=== PATIENT | female | born 1975 | race Caucasian/White ===

== ENCOUNTER 2018-12-25 22:22 | Emergency (ER) | payer MEDICAID, OTHER ==
[~2018-12-25] VITALS: Ht 170.2 cm; Wt 74.7 kg
[~2018-12-25 22:22] MED LIST: PT TAKES NO MEDS
[2018-12-25 22:27] VITALS: BP 168/91; PULSE 101; RESP 20; Ht 170.2 cm; Wt 74.7 kg
[2018-12-25] MEDS ORDERED: HYDROCODONE/APAP (5/325) TAB PO ONE (23:30)
--- NOTE | 2018-12-26 00:37 | ERD ---
ER Documentation Chief Complaint Chief Complaint L elbow pain rad to forearm x30min; no fall/ trauma. crying, emotional. HPI Patient is a 43-year-old female presents the ER for concerns of left elbow pain radiating to her forearm times 30 minutes. Patient denies any falls or trauma. She states pain is severe, rates it 10 out of 10. Patient denies any left shoulder pain, chest pain, shortness of breath, nausea, vomiting or LOC. Patient has not taken medications for pain. Patient is currently in [employer] however she does not recall any specific way she may have injured it. ROS All systems reviewed and are negative except as per history of present illness. Medications Home Meds Reported Medications [Pt Takes No Meds] No Conflict Check 08/25/11 Allergies Allergies: Coded Allergies: No Known Allergy (Unverified , 08/25/11) PMhx/Soc Medical and Surgical Hx: pt denies Medical Hx, pt denies Surgical Hx History of Surgery: No Anesthesia Reaction: No Hx Neurological Disorder: No Hx Respiratory Disorders: No Hx Cardiac Disorders: No Hx Psychiatric Problems: No Hx Miscellaneous Medical Probl: No Hx Alcohol Use: Yes (OCCASSIONALLY) Hx Substance Use: No Hx Tobacco Use: No Smoking Status: Never smoker FmHx Family History: No diabetes Physical Exam Vitals Vital Signs Date Temp Pulse Resp B/P (MAP) Pulse Ox O2 O2 Flow FiO2 Time Delivery Rate 12/25/18 97.0 101 20 168/91 100 22:27 (116) Physical Exam GENERAL: Well-developed, well-nourished female. HEAD: Normocephalic, atraumatic. EYES: Pupils are equally reactive bilaterally. EOMs grossly intact. No conjunctival erythema. ENT: Moist mucous membranes. No uvula deviation. No kissing tonsils. NECK: Supple. No meningismus. Normal range of motion of the neck. LUNG: Clear to auscultation bilaterally. No rhonchi, wheezing, rales or coarse breath sounds. HEART: Regular rate and rhythm. No murmurs, rubs or gallops. EXTREMITIES: Equal pulses bilaterally. No peripheral clubbing, cyanosis or edema. No unilateral leg swelling. NEUROLOGIC: Alert and oriented. Moving all four extremities without any difficulty. Normal speech. Steady gait. SKIN: Normal color. Warm and dry. No rashes or lesions. LUE: No deformity or ecchymosis. Mild swelling noted to the elbow joint. No warmth or erythema. Tender to palpation over the olecranon. Decreased range of motion secondary to pain. Sensation intact to light touch. Neurovascularly intact. (Able to give thumbs up, make an ok sign, cross digits 2 and 3, thumb to pinky opposition. 2+ RP.) No snuffbox tenderness. Results 24 hrs Current Medications Medications Dose Sig/Sarah Start Time Status Last (Trade) Ordered Route PRN Stop Time Admin Dose Reason Admin 1 tab ONCE ONCE 12/25/18 DC 12/25/18 Acetaminophen PO 23:30 23:40 / 12/25/18 23:31 Hydrocodone Bitart ([place] ()) Procedures/MDM ED COURSE: The patient was stable throughout ED course. I kept the patient and/or family informed of laboratory and diagnostic imaging results throughout the ED course. DIAGNOSTIC IMAGING: Read by radiologist. Patient: WESTON ALEXANDER : 1975 Age: 43 Sex: F MR #: [id number] DOS: 12/25/18 2312 Ordering MD: WILSON SKINNER PA-C Location: [facility] Room/Bed: PROCEDURE: XR Elbow. CLINICAL INDICATION: Pain. TECHNIQUE: Three views of the left elbow. COMPARISON: None available. FINDINGS: The anterior fat pad is elevated and the posterior fat pad is visible, consistent with a joint effusion. The anterior humeral and radiocapitellar lines are normal. A fracture is identified along the trochlear notch of the ulna. The joint spaces are preserved. There is no significant soft tissue swelling. IMPRESSION: Fracture along the trochlear notch of the ulna. Elbow joint effusion. RPTAT: HTAR .Sergio West MD, Date Time Electronically viewed and signed by .Sergio West MD, on 12/26/2018 00:40 .R/ CC: WILSON SKINNER PA-C [id number] PROCEDURES: SPLINT APPLICATION: The patient was verbally consented at bedside prior to splint application. Patient was explained the risks, benefits and alternatives to this procedure. The patient was neurovascularly intact prior to and status post application of the splint. The patient tolerated the procedure well with no complications. Splint type: long arm splint Extremity: left Indication: Fracture along the trochlear notch of the ulna. Elbow joint effusion. MEDICATIONS GIVEN: [place] Patient tolerated medication well with no adverse reactions. Patient reported improvement in pain. Patient's friend will drive her home. MEDICAL DECISION MAKING: This is a 43-year-old female presents here for concerns of left elbow pain which started prior to arrival. Patient denies any falls or trauma. Vital signs were reviewed. Patient is afebrile. Patient is not hypoxic. XR showed Fracture along the trochlear notch of the ulna. Elbow joint effusion. Patient was placed in a long-arm splint and arm sling. Patient advised to follow-up with marketing support specialist. At this time the patient presentation is most consistent with ulnar fracture. Patient was advised on RICE therapy. Low suspicion for fracture, dislocation, ligamentous tear, septic joint. Patient was nontoxic, [id number] prior to discharge. Patient reported improvement in pain rufina or to discharge. PRESCRIPTIONS: Ibuprofen DISCHARGE: Take pain medications as needed. I have instructed the patient to follow-up with his/her primary care physician in 2-3 days. I have instructed the patient to promptly return to the ER for any new or worsening symptoms including increased pain, swelling, redness, warmth or fever. The patient and/or family expressed understanding of and agreement with this plan. All questions were answered. Home care instructions were provided. Disclaimer: Inadvertent spelling and grammatical errors are likely due to EHR/dictation software use and do not reflect on the overall quality of patient care. Also, please note that the electronic time recorded on this note does not necessarily reflect the actual time of the patient encounter. Departure Diagnosis: Primary Impression: Ulna fracture Encounter type: initial encounter Ulna location: distal Fracture type: closed Fracture morphology: unspecified fracture morphology Laterality: unspecified laterality Qualified Codes: S52.609A - Unspecified fracture of lower end of unspecified ulna, initial encounter for closed fracture Condition: Fair Patient Instructions: Sprain Elbow, Tendonitis Referrals: FRANDY HUTCHINSON MD (PCP) Additional Instructions: Remain in splint until seen and cleared by marketing support specialist. Call your primary care doctor TOMORROW for an appointment during the next 1-2 days.See the doctor sooner or return here if your condition worsens before your appointment time. WILSON SKINNER PA-C Dec 26, 2018 00:37
[2018-12-26] MEDS ORDERED: IBUP-1542 PO (01:04)
== END 2018-12-26 01:36 | disposition home or self-care (01) ==
LOC: FTE 22:22
DX: S52.609A Unspecified fracture of lower end of unspecified ulna, initial encounter for closed fracture (principal); X58.XXXA Exposure to other specified factors, initial encounter; Y92.9 Unspecified place or not applicable
CPT/HCPCS: 29105; 73080; Z7502; Z7610